=== PATIENT | male | born 1970 ===

== ENCOUNTER → 2018-08-10 22:32 | Outpatient (REF) | payer OTHER, SELFPAY ==
[2018-08-10 23:56] LABS: Add Manual Diff / Slide Review NO; Basophils Percent Auto 1.3 % (0-2); Eosinophils Percent Auto 1.6 % (2-4); Hematocrit 44.9 % (41-53); Hemoglobin 15.1 g/dL (13.5-17.5); Lymphocytes Percent Auto 22.7 % (25-40); Mean Corpuscular HGB Conc 33.6 % (30-36); Mean Corpuscular Hemoglobin 29.3 PG (26-34); Mean Corpuscular Volume 87.1 fL (80-100); Monocytes Percent Auto 10.1 % (3-14); Neutrophils Absolute Auto 2700 /uL (1500-7000); Neutrophils Percent Auto 64.3 % (50-75); Platelet Count 266 X10^3/uL (150-400); Red Blood Cell Count 5.16 X10^6/uL (4.5-5.9); Red Cell Distribution Width 13.4 % (11.6-14.8); White Blood Cell Count 4.2 X10^3/uL (4.5-11.0)
[2018-08-12 13:45] LABS: Sex Hormone Binding Globulin 14 nmol/L (10-50)
[2018-08-13 15:41] LABS: Estradiol 25 pg/mL (< 40)
[2018-08-13 19:45] LABS: Testosterone Free 104.2 pg/mL (35.0-155.0); Testosterone Total 358 ng/dL (250-1100)
[2018-08-14 12:40] LABS: PSA Total 0.59 ng/mL (< 4.01)
== END ==
LOC: LAB 22:32
PROVIDERS: Visit Provider Naturopath
DX: S92.032 Displaced avulsion fracture of tuberosity of left calcaneus (principal); M54.5 Low back pain; R63.5 Abnormal weight gain; E29.1 Testicular hypofunction
CPT/HCPCS: 36415; 82670; 84153; 84154; 84270; 84402; 84403; 85025

== ENCOUNTER → 2018-11-23 21:52 | Outpatient (REF) | payer OTHER, SELFPAY ==
[2018-11-26 15:15] LABS: PSA Total 0.63 ng/mL (< 4.01)
[2018-11-30 17:57] LABS: Estrogen 184.2 pg/mL (60-190)
== END ==
LOC: LAB 21:52
PROVIDERS: Visit Provider Family Medicine
DX: M54.5 Low back pain (principal); M77.12 Lateral epicondylitis, left elbow; E29.1 Testicular hypofunction
CPT/HCPCS: 36415; 82627; 82672; 84153; 84154; 84402; 84403